=== PATIENT | female | born 1975 | race Caucasian/White ===

== ENCOUNTER 2016-11-12 08:13 | Emergency (ER) | payer OTHER ==
[~2016-11-12 08:13] MED LIST: ACULAR10 ML OP; ADDERALL PO; ANTIDEPRESSANT; ATIVAN0.5 M1; BACTRIM DS TABL1 TA1 PO; BIOTIN; CLEOCIN HCL300 M1 PO; DEPAKOTE SPRIN125 M1 DOB; IRON1 TA1 PO; KLONOPIN; KLONOPIN1 MG PO; LAMOTRIGINE100 M1 PO; LEXAPRO PO; LIBRIUM PO; LORTAB 5/500 TA1 TA1 PO; M.V.I. ADULT10 ML; MAG-OX 400400 M1 PO; MULTI-VITAMIN1 EAC1 PO; NO MEDICATIONS; OXYCODONE HCL5 MG PO; POLYTRIM EYE DR10 ML OP; PRILOSEC PO; PRILOSEC40 MG PO; ROXICODONE5 MG PO; THERAPEUTIC M1 UDTA1 PO; TYLENOL #3 PO; VICODIN PO; VOLTAREN75 MG PO; ZOFRAN ODT4 MG/UDTAB PO; ZOLOFT50 MG; [UNRECOGNIZED DRUG - REMARK]; [UNRECOGNIZED DRUG - REMARK]
== END 2016-11-12 09:06 | disposition home or self-care (01) ==
LOC: SED 08:13
DX: S61.210A Laceration without foreign body of right index finger without damage to nail, initial encounter (principal); S61.101A Unspecified open wound of right thumb with damage to nail, initial encounter; Z23 Encounter for immunization; Z88.2 Allergy status to sulfonamides; W45.8XXA Other foreign body or object entering through skin, initial encounter; Y92.009 Unspecified place in unspecified non-institutional (private) residence as the place of occurrence of the external cause
CPT/HCPCS: 90471; 90715; 97602; 99283